=== PATIENT | male | born 1955 | race Caucasian/White ===

== ENCOUNTER 2021-06-02 10:08 | Outpatient (CLI) | payer MEDICARE ==
[2021-06-03 11:34] LABS: SARS-CoV-2 PCR by NAA DETECTED (NotDetected)
== END 2021-06-02 10:09 | disposition home or self-care (01) ==
LOC: CSHLAB 10:08
PROVIDERS: ATTEND Internal Medicine Gastroenterology
DX: U07.1 COVID-19 (principal); R19.5 Other fecal abnormalities; K63.5 Polyp of colon
CPT/HCPCS: U0003; U0005

== ENCOUNTER 2021-06-19 11:46 | Outpatient (CLI) | payer MEDICARE ==
[2021-06-19 20:33] LABS: SARS-CoV-2 PCR by NAA Not Detected (NotDetected)
== END 2021-06-19 11:47 | disposition home or self-care (01) ==
LOC: CSHLAB 11:46
PROVIDERS: ATTEND Internal Medicine Gastroenterology
DX: Z20.822 Contact with and (suspected) exposure to COVID-19 (principal); R19.5 Other fecal abnormalities; K63.5 Polyp of colon
CPT/HCPCS: U0003; U0005

== ENCOUNTER 2021-06-24 06:37 | Day surgery (SDC) | payer MEDICARE ==
[2021-06-20 10:38] VITALS: BMI 32.1
[2021-06-24] MEDS ORDERED: Lidocaine 1% MPF 2 ML VIAL ONE (07:41)
[2021-06-24] MEDS ORDERED: PROPOFOL 20 ML ONE ×2 (09:04)
== END 2021-06-24 10:26 | disposition home or self-care (01) ==
LOC: CSHSDC 06:37
PROVIDERS: ATTEND Internal Medicine Gastroenterology
PROC: 0DBK8ZZ Excision of Ascending Colon, Via Natural or Artificial Opening Endoscopic (ICD-10-PCS; principal; 2021-06-24)
PROC: 0DBC8ZZ Excision of Ileocecal Valve, Via Natural or Artificial Opening Endoscopic (ICD-10-PCS; 2021-06-24)
DX: R19.5 Other fecal abnormalities (principal); D12.2 Benign neoplasm of ascending colon; D12.3 Benign neoplasm of transverse colon; K64.9 Unspecified hemorrhoids; K57.30 Diverticulosis of large intestine without perforation or abscess without bleeding; I10 Essential (primary) hypertension; E11.9 Type 2 diabetes mellitus without complications; E78.5 Hyperlipidemia, unspecified; Z87.891 Personal history of nicotine dependence
CPT/HCPCS: 36416; 88305; J2704

== ENCOUNTER 2022-04-29 14:13 | Inpatient (IN) | payer MEDICARE ==
[2022-04-29] MEDS ORDERED: Nitroglycerin 2% Ointment 1 INCH/1 GM Packet ONE (15:17)
[2022-04-29] MEDS ORDERED: Enoxaparin Sodium 100 MG/ML SYRINGE ONE (15:17)
[2022-04-29 15:47] LABS: CKMB 8.6 ng/mL (0-6.6)
[2022-04-29] MEDS ORDERED: Acetaminophen 325 MG TAB PO PRN (16:43)
[2022-04-29] MEDS ORDERED: Ondansetron ODT 4 MG TAB PO PRN (16:43)
[2022-04-29] MEDS ORDERED: Ondansetron PF 4 MG/2 ML Vial IVP PRN (16:43)
[2022-04-29] MEDS ORDERED: Acetaminophen 650 MG Suppository PR PRN (16:43)
[2022-04-29] MEDS ORDERED: Nitroglycerin 0.4 MG TAB (25 Tab Bottle) SL PRN (16:47)
[2022-04-29 17:58] VITALS: BMI 33.6
[2022-04-29 18:27] LABS: Troponin I 2.685 ng/mL (< 0.028)
[2022-04-29] MEDS ORDERED: Insulin Regular 300 UNITS/3 ML VIAL SC PRN ×2 (18:28)
[2022-04-29] MEDS ORDERED: Dextrose 5% in Water 1,000 ML IV PRN (18:28)
[2022-04-29] MEDS ORDERED: Dextrose 50% Abboject 50 ML SYRINGE SLOW IVP PRN (18:28)
[2022-04-29] MEDS: Metoprolol Tartrate 25 MG TAB PO SCH (21:06)
[2022-04-29] MEDS: Atorvastatin Calcium 40 MG TAB PO SCH (21:06)
[2022-04-29] MEDS: Lantus 1000 UNITS/10 ML VIAL SC SCH (21:07)
[2022-04-29] MEDS: Enoxaparin Sodium 120 MG/0.8 ML SYRINGE SC SCH (21:07)
[2022-04-29 21:39] LABS: Troponin I 4.791 ng/mL (< 0.028)
[2022-04-30 04:12] LABS: #Monocytes 0.5 10x3/uL (0.0-1.1); #Neutrophils 4.9 10x3/uL (1.5-8.4); %Basophils 0.4 % (0.0-2.0); %Eosinophils 0.3 % (0.0-6.0); %Lymphocytes 30.1 % (18.0-47.0); %Monocytes 6.5 % (0.0-10.0); %Neutrophils 62.1 % (40.0-75.0); Hemoglobin 12.6 g/dL (13.5-17.5); Mean Corpuscular HGB CONC 33.4 g/dL (32.0-36.0); Mean Corpuscular Hemoglobin 29.9 pg (27.0-33.0); Mean Corpuscular Volume 89.5 fl (81.2-95.1); Mean Platelet Volume 10.2 fl (7.4-10.4); Platelet Count 183 10x3/uL (150-450); RBC Distribution Width 12.2 % (11.5-14.5); Red Blood Cell (RBC) Count 4.21 10x6/uL (4.32-5.72); White Blood Cell (WBC) Count 7.9 10x3/uL (3.5-10.5)
[2022-04-30 04:20] LABS: Anion Gap 12 mmol/L (10-20); BUN (Urea Nitrogen) 25 mg/dL (8.4-25.7); Calc. Creatinine Clearance 67 mL/min (70-130); Calcium 8.9 mg/dL (7.8-10.44); Carbon Dioxide 27 mmol/L (23-31); Cardiac Risk 5.9 (Less than 4.5); Chloride 102 mmol/L (98-107); Cholesterol 153 mg/dl (< 200 Desired); Estimated GFR 42; Glucose 192 mg/dL (80-115); HDL Cholesterol 26 mg/dL (>60 Neg Risk); LDL Cholesterol, Calculated 64 mg/dL; Potassium 4.3 mmol/L (3.5-5.1); Sodium 137 mmol/L (136-145); Triglycerides 316 mg/dL (Less than 150)
[2022-04-30] MEDS: Metoprolol Tartrate 25 MG TAB PO SCH (06:34)
[2022-04-30] MEDS ORDERED: Aspirin Chewable 81 MG TAB PO SCH ×2 (06:45→09:00)
[2022-04-30] MEDS ORDERED: Nitroglycerin 50 MG/250 ML BOT 250 ML ONE (06:47)
[2022-04-30] MEDS ORDERED: Heparin 10,000 UNITS/ 10 ML VIAL ONE ×2 (06:48→07:07)
[2022-04-30] MEDS ORDERED: Adenosine 6 MG/2 ML VIAL ONE (06:49)
[2022-04-30] MEDS ORDERED: Verapamil 5 MG/2 ML VIAL ONE (06:49)
[2022-04-30] MEDS ORDERED: Bivalirudin 250 MG VIAL ONE (06:49)
[2022-04-30] MEDS ORDERED: Lidocaine 1% MPF 2 ML VIAL ONE (06:51)
[2022-04-30] MEDS ORDERED: Fentanyl 100 MCG/2 ML VIAL ONE (07:09)
[2022-04-30] MEDS ORDERED: Midazolam HCl 2 mg/2 ml Vial ONE (07:09)
[2022-04-30] MEDS ORDERED: TICAGRELOR 90 MG TABLET ONE (07:41)
[2022-04-30] MEDS ORDERED: Atropine Sulfate 0.4 mg/1 ml Vial ONE (07:49)
[2022-04-30] MEDS ORDERED: Sodium Chloride 0.9% 200 ML IV PRN (08:37)
[2022-04-30] MEDS ORDERED: Nitroglycerin 0.4 MG TAB (25 Tab Bottle) SL PRN (08:37)
[2022-04-30] MEDS ORDERED: Acetaminophen/Codeine 30-300mg Tablet PO PRN ×2 (08:37)
[2022-04-30] MEDS ORDERED: FLU VACC QS2022-23(65YR UP)/PF 240 MCG/0.7 ML SYRINGE IM ONE (09:00)
[2022-04-30] MEDS ORDERED: Iopamidol 300 61% 100 ML VIAL FS ONE (09:20)
[2022-04-30] MEDS ORDERED: Iopamidol 300 61% 50 ML VIAL FS ONE (09:20)
[2022-04-30] MEDS: Enoxaparin Sodium 120 MG/0.8 ML SYRINGE SC SCH (09:34)
[2022-04-30] MEDS: Amlodipine 10 MG TAB PO SCH (09:38)
[2022-04-30 12:27] LABS: Troponin I 4.234 ng/mL (< 0.028)
[2022-04-30] MEDS: Lantus 1000 UNITS/10 ML VIAL SC SCH (20:31)
[2022-04-30] MEDS: Atorvastatin Calcium 40 MG TAB PO SCH (20:31)
[2022-05-01 04:29] LABS: #Monocytes 0.5 10x3/uL (0.0-1.1); #Neutrophils 5.2 10x3/uL (1.5-8.4); %Basophils 0.4 % (0.0-2.0); %Lymphocytes 19.9 % (18.0-47.0); %Monocytes 7.5 % (0.0-10.0); %Neutrophils 71.5 % (40.0-75.0); Hemoglobin 14.2 g/dL (13.5-17.5); Mean Corpuscular Volume 88.2 fl (81.2-95.1); Platelet Count 176 10x3/uL (150-450); RBC Distribution Width 12.2 % (11.5-14.5); Red Blood Cell (RBC) Count 4.74 10x6/uL (4.32-5.72); White Blood Cell (WBC) Count 7.2 10x3/uL (3.5-10.5)
[2022-05-01 04:43] LABS: Anion Gap 12 mmol/L (10-20); BUN (Urea Nitrogen) 19 mg/dL (8.4-25.7); Calc. Creatinine Clearance 69 mL/min (70-130); Calcium 8.9 mg/dL (7.8-10.44); Carbon Dioxide 28 mmol/L (23-31); Chloride 102 mmol/L (98-107); Estimated GFR 43; Glucose 150 mg/dL (80-115); Potassium 4.4 mmol/L (3.5-5.1); Sodium 138 mmol/L (136-145)
[2022-05-01] MEDS ORDERED: Enoxaparin Sodium 40 MG/0.4 ML SYRINGE SC SCH (09:00)
[2022-05-01] MEDS ORDERED: Aspirin Chewable 81 MG TAB PO SCH (09:00)
[2022-05-01 09:22] VITALS: BP 174/94; TEMP 98.1
[2022-05-01] MEDS: Amlodipine 10 MG TAB PO SCH (09:31)
[2022-05-01] MEDS ORDERED: TICAGRELOR 90 MG TABLET PO SCH (21:00)
[2022-05-02] MEDS ORDERED: Clopidogrel Bisulfate 75 MG TAB PO SCH (09:00)
== END 2022-05-01 11:40 | disposition home or self-care (01) | DRG 246 ==
LOC: CSHERS 14:13 → CSHTELE 17:25 → OBSVTOIN 17:26
PROVIDERS: ADMIT Internal Medicine; ATTEND Internal Medicine
PROC: 027136Z Dilation of Coronary Artery, Two Arteries with Three Drug-eluting Intraluminal Devices, Percutaneous Approach (ICD-10-PCS; principal; 2022-04-30)
PROC: 4A023N7 Measurement of Cardiac Sampling and Pressure, Left Heart, Percutaneous Approach (ICD-10-PCS; 2022-04-30)
PROC: B2111ZZ Fluoroscopy of Multiple Coronary Arteries using Low Osmolar Contrast (ICD-10-PCS; 2022-04-30)
PROC: B2151ZZ Fluoroscopy of Left Heart using Low Osmolar Contrast (ICD-10-PCS; 2022-04-30)
DX: I21.4 Non-ST elevation (NSTEMI) myocardial infarction (principal); J96.01 Acute respiratory failure with hypoxia; N17.9 Acute kidney failure, unspecified; I12.9 Hypertensive chronic kidney disease with stage 1 through stage 4 chronic kidney disease, or unspecified chronic kidney disease; E78.5 Hyperlipidemia, unspecified; E11.22 Type 2 diabetes mellitus with diabetic chronic kidney disease; N18.9 Chronic kidney disease, unspecified; I25.10 Atherosclerotic heart disease of native coronary artery without angina pectoris; L40.9 Psoriasis, unspecified; J44.9 Chronic obstructive pulmonary disease, unspecified; Z79.4 Long term (current) use of insulin; Z82.49 Family history of ischemic heart disease and other diseases of the circulatory system; Z79.84 Long term (current) use of oral hypoglycemic drugs; Z79.82 Long term (current) use of aspirin; Z79.899 Other long term (current) drug therapy; Z79.02 Long term (current) use of antithrombotics/antiplatelets; Z86.73 Personal history of transient ischemic attack (TIA), and cerebral infarction without residual deficits
CPT/HCPCS: 36415; 36416; 71045; 80048; 80061; 82553; 84484; 85025; 85347; 92928; 93005; 93010; 93306; 93458; 94760; 96372; 99152; 99153; C1769; C1874; C1887; C1894; C9600; G0378; J0153; J0461; J0583; J1644; J1650; J1815; J2250; J3010; Q9967